=== PATIENT | male | born 1965 | race Caucasian/White ===

== ENCOUNTER 2019-08-04 08:19 | Day surgery (SDC) | payer BC ==
[~2019-08-04 08:19] MED LIST: CEFAZOLIN 2 Gram 2 GM/50 ML BAG IVPB ONE; CELECOXIB 100 MG CAPSULE PO ONE; FAMOTIDINE 20MG TABLET PO ONE; MECLIZINE 25 MG TABLET PO ONE; METOCLOPRAMIDE 10 MG TABLET PO ONE; VANCOMYCIN 1GM/200ML PREMIX 1 GM/200 ML PIGGYBACK IVPB ONE
[2019-08-04] MEDS ORDERED: MIDAZOLAM HCL 2MG/2ML VIAL IV ONE (08:20)
[2019-08-04] MEDS ORDERED: LIDOCAINE 2% MDV (20MG/ML) 20ML VIAL IV ONE (08:20)
[2019-08-04] MEDS ORDERED: ROPIVACAINE HCL (NAROPIN) /PF 5MG/ML 20ML VIAL IV ONE (08:20)
[2019-08-04] MEDS ORDERED: PROPOFOL 10 MG/ML VIAL IV ONE (08:20)
[2019-08-04] MEDS ORDERED: DEXAMETHASONE 4 MG/ML 1ML VIAL IVP ONE (08:20)
[2019-08-04 09:15] LABS: ABO GROUP A
[2019-08-04 09:16] LABS: ANTIBODY SCREEN NEGATIVE (NEGATIVE); RH TYPE POSITIVE
[2019-08-04] MEDS ORDERED: RINGERS SOLUTION,LACTATED 1,000 ML IV ONE ×2 (09:20→11:20)
[2019-08-04] MEDS ORDERED: TRANEXAMIC ACID 1,000 MG/10 ML ML IV ONE (12:00)
[2019-08-04] MEDS ORDERED: TRANEXAMIC ACID 1,000 MG/10 ML ML IU ONE (12:00)
[2019-08-04] MEDS ORDERED: BUPIVACAINE 0.5% W/EPI MPF 30 ML VIAL SQ ONE (12:00)
[2019-08-04] MEDS ORDERED: HYDROCODONE/APAP 10/325 TABLET PO PRN (12:24)
[2019-08-04] MEDS ORDERED: DIPHENHYDRAMINE HCL 25 MG CAPSULE PO PRN (12:24)
[2019-08-04] MEDS ORDERED: MAGNESIUM HYDROXIDE 30 ML UDC PO PRN (12:24)
[2019-08-04] MEDS ORDERED: BISACODYL 10 MG SUPP RC PRN (12:24)
[2019-08-04] MEDS ORDERED: ONDANSETRON HCL IV 4 MG/2 ML VIAL IVP PRN (12:24)
[2019-08-04] MEDS ORDERED: ACETAMINOPHEN W/ CODEINE 300MG/60MG TABLET PO PRN ×2 (12:24)
[2019-08-04] MEDS ORDERED: KETOROLAC 30 MG/ML VIAL IVP PRN (12:24)
[2019-08-04] MEDS ORDERED: TRAMADOL HCL 50 MG TABLET PO PRN (12:24)
[2019-08-04] MEDS ORDERED: NALOXONE 0.4 MG/1 ML VIAL IVP PRN (12:24)
[2019-08-04] MEDS ORDERED: HYDROMORPHONE HCL 2 MG/ML VIAL IM PRN (12:24)
[2019-08-04] MEDS ORDERED: ACETAMINOPHEN 325 MG TAB PO PRN (12:24)
[2019-08-04] MEDS ORDERED: ZOLPIDEM TARTRATE 5 MG TABLET PO PRN (12:24)
[2019-08-04] MEDS ORDERED: AL HYDROX/MAG HYDROX 30ML UD PO PRN (12:24)
[2019-08-04] MEDS ORDERED: PNEUM 23-VAL ADULT IM ONE (13:40)
[2019-08-04] MEDS: HYDROCODONE/APAP 10/325 TABLET PO PRN ×2 (14:47→17:45)
[2019-08-04] MEDS: POTASSIUM CHLORIDE/D5-0.9%NACL 20 MEQ/1,000 ML BAG IV SCH ×2 (15:38→21:33)
--- NOTE | 2019-08-04 15:47 | Rehab Evaluation ---
Patient Information - Patient Information Diagnosis: DJD L knee Ordered Treatment: PT Evaluate and Treat Status: Initial Evaluation Surgery: Yes (L TKA) Date of Surgery: 08/04/19 Past Medical/Surgical Hx: PAST MEDICAL/SURGICAL HISTORY Surgery to Affected Area? No Recent Surgery? Past Surgical History RIGHT KNEE SCOPE PMH - Respiratory Hx Respiratory Disorders No PMH - Cardiovascular Hx Cardiovascular Disorders Yes Hx Hypertension Yes: FAIR CONTROL ON MEDS Exercise Tolerance Good PMH - Neuro Hx Neurological Disorders No PMH - GI Hx Gastrointestinal Disorders No PMH - Hx Genitourinary Disorders No PMH - Endocrine Hx Endocrine Disorders No PMH - Musculoskeletal Hx Musculoskeletal Disorders Yes Hx Arthritis Yes: KNEES AND HANDS PMH - Psych Hx Psychiatric Problems No PMH - Hematology/Oncology Hx Hematology/Oncology No Disorders Premorbid Status: Detail (The patient was independent with all mobility prior to surgery.) Precautions: [place], Fall, Other (WBAT on L LE) - Time With Patient Total Time Spent With Patient (Min): 30 Treatment Procedures: Detail (Initial Evaluation, low complexity, gait training.) Subjective Information - Subjective Information Per Patient (The patient had complaints of L knee pain level 1-3.) Objective Data - Mental Status Patient Orientation: Oriented x3 - Visual Perception Appears within normal limits for therapeutic activities - ROM Not within normal limits (L knee AROM is limited s/p surgery. All other LE AROM is WNL.) - Strength/Tone Other (The patient's LE strength was not tested s/p sugery however strength is functional.) - Bed Mobility Independent (The patient is independent with supine to and from sit transfer.) - Transfers Independent (The patient was independent with sit to and from stand transfer.) - Balance Balance Sitting: Good Balance Standing: Good - Gait Detail (The patient ambulated with standard walker a distance of 110 feet x 1 WBAT on the L LE with supervision of 1 for safety only.) Therapy Assessment - Therapy Assessment Detail (The patient was independent with bed mobility, transfers and ambulation. Will see the patient for 1 to 2 visits for completion of inpt. PT goals.) Problem List - Problem List Physical Therapy Problem List: Detail (Decreased L knee AROM and L LE strength) Goals - Goals Physical Therapy Goals: 1) The patient will be independent with ambulation on stairs using proper technique with supervision for safety. 2) The patient will be indpendent with TKA HEP. Prognosis - Prognosis Good Plan - Plan Physical Therapy Plan: PT for 1-2 sessions for ambulation on stairs and instruction in HEP.
[2019-08-04] MEDS: CEFAZOLIN 2 Gram 2 GM/50 ML BAG IVPB SCH (20:32)
[2019-08-04] MEDS: DOCUSATE SODIUM 100 MG CAPSULE PO SCH (21:36)
[2019-08-05] MEDS: CEFAZOLIN 2 Gram 2 GM/50 ML BAG IVPB SCH ×2 (02:35→11:33)
[2019-08-05 06:34] LABS: HEMATOCRIT 38.7 % (42.0-52.0); HEMOGLOBIN 12.6 gm/dl (14.0-18.0)
[2019-08-05 06:49] LABS: BLOOD UREA NITROGEN 15 mg/dL (6-20); CREATININE 0.9 mg/dL (0.7-1.2); EST GLOMERULAR FILTRATION RATE > 60 mL/min; GLUCOSE,RANDOM 149 mg/dL (74-109)
--- NOTE | 2019-08-05 08:17 | Rehab Evaluation ---
Patient Information - Patient Information Diagnosis: DJD L knee Ordered Treatment: OT Evaluate and Treat Status: Initial Evaluation Surgery: Yes (L TKA) Date of Surgery: 08/04/19 Past Medical/Surgical Hx: PAST MEDICAL/SURGICAL HISTORY Surgery to Affected Area? No Recent Surgery? Past Surgical History RIGHT KNEE SCOPE PMH - Respiratory Hx Respiratory Disorders No PMH - Cardiovascular Hx Cardiovascular Disorders Yes Hx Hypertension Yes: FAIR CONTROL ON MEDS Exercise Tolerance Good PMH - Neuro Hx Neurological Disorders No PMH - GI Hx Gastrointestinal Disorders No PMH - Hx Genitourinary Disorders No PMH - Endocrine Hx Endocrine Disorders No PMH - Musculoskeletal Hx Musculoskeletal Disorders Yes Hx Arthritis Yes: KNEES AND HANDS PMH - Psych Hx Psychiatric Problems No PMH - Hematology/Oncology Hx Hematology/Oncology No Disorders Premorbid Status: Detail (The patient was independent with all mobility prior to surgery. His spouse is responsible for home mgmt, meal prep and laundry tasks. 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 He has a tub/shower combination with a hand held shower, no seat or grab bar and a standard height toilet, no grab bar. He has a standard walker.) Precautions: [place], Fall, Other (WBAT on L LE) - Time With Patient Total Time Spent With Patient (Min): 35 Treatment Procedures: Detail (OT eval low complexity) Subjective Information - Subjective Information Per Patient Objective Data - Pain Pain Present: Yes (09/07) - Mental Status Patient Orientation: Oriented x3 - Visual Perception Appears within normal limits for therapeutic activities - ROM Within normal limits (James UE AROM WNL) - Strength/Tone Within normal limits (James UE strength WNL) - Coordination Appears within normal limits for therapeutic activities - Bed Mobility Independent (Ind with supine to sit) - Transfers Independent (Ind with sit to stand from EOB) - Balance Balance Sitting: Good Balance Standing: Good - Sensation Intact - Gait Detail (Pt ambulating in room and hallway with CG assist.) - ADL's/IADL's Detail (Pt educated on modified LE dressing techniques and he was able to doff briefs and slipper socks and don ghada sock (with assist), boxer shorts, pants and slip on slippers Indly. Reviewed kitchen and shower safety and modifications, pt verbalized understanding.) Therapy Assessment - Therapy Assessment Detail (Pt is Ind with modified LE dressing techniques.) Problem List - Problem List Physical Therapy Problem List: Detail (Decreased L knee AROM and L LE strength) Occupational Therapy Problem List: Detail (No current IP OT problems identified.) Goals - Goals Physical Therapy Goals: 1) The patient will be independent with ambulation on stairs using proper technique with supervision for safety. 2) The patient will be indpendent with TKA HEP. Occupational Therapy Goals: No current IP OT goals identified. Prognosis - Prognosis Good Plan - Plan Physical Therapy Plan: PT for 1-2 sessions for ambulation on stairs and instruction in HEP. Occupational Therapy Plan: Pt is discharged from IP OT at this time. Thank you for this referral.
--- NOTE | 2019-08-05 09:10 | Operative Note ---
DATE OF SURGERY: 08/04/2019 PREOPERATIVE DIAGNOSIS: End-stage arthrosis of the left knee. POSTOPERATIVE DIAGNOSIS: End-stage arthrosis of the left knee. OPERATION: Cemented left total knee arthroplasty using [employer] II components with a size 6 Oxinium femur, a size 5 stemmed tibia baseplate, a 9 mm lipped highly crosslinked tibial insert, and a 35 mm all-plastic patella. STAFF SURGEON: Alex Elder MD ANESTHESIA: Spinal. PREPARATION: Chloraprep. INDIVIDUAL CONSIDERATIONS: None. PROCEDURE: The patient was taken to the operating room, placed supine on the operating room table. He had a successful induction of a spinal anesthetic. The left lower extremity was prepped and draped in the usual fashion. The patient had a midline approach to the knee. The limb was elevated and tourniquet was inflated to 250 mmHg. Sharp dissection carried down through skin and subcutaneous tissue. Small veins were coagulated with a Bovie. A medial arthrotomy was performed. The patella was everted and the knee was flexed. The patient had exposed bone in the lateral compartment with bone loss. Fat pad was resected, ACL was sacrificed, and provisional anterior meniscectomies were performed. The capsule was released from the medial proximal tibia. The initial femoral coil winder strap hole was then made freehand. The intramedullary femoral cutting jig was placed. It was cut in 7.0 degrees of valgus and adjusted for rotation and secured with pins for a 10 mm resection. The initial transverse cut was then made. The skin guide was placed in the anterior and posterior coil winder strap holes. It was found that a size 6 would be appropriate. The anterior and posterior cuts followed by chamfer cuts were made. Osteophytes removed, and a size 6 trial was placed and found to fit well. The tibia was brought forward, and the remainder of the meniscal remnants removed with a Bovie. The extraarticular tibial cutting jig was placed. It was cut in neutral with a 3-degree AP slope. It was set for a 9 mm resection keyed off the high lateral side and secured with pins. When cutting the tibia, care was taken to preserve the PCL insertion on the tibia. After removing large medial osteophytes, I was able to easily fit a size 5 baseplate trial. It was adjusted for rotation and secured with pins. With a 9 mm trial and femoral trial, there was excellent motion and stability. Ligamentous balance and rotation alignment were thought to be normal. No lateral release was required for patellofemoral tracking even at this point. Femoral coil winder strap holes were impacted and tri-flange tibial stamp cut and it was impacted, and these trial components were removed. The patient had a thick patella and roughly 9 mm of bone was removed freehand. It was found that I could fit a 35 patella, and the 3 coil winder strap holes were then drilled. After thorough irrigation with Betadine and saline, I put the tourniquet down briefly to get bleeders posteriorly and re-irrigated. Prior to cementing, I went ahead and removed blood from the bone with a CarboJet and cemented in a size 5 stemmed tibia baseplate followed by impaction of the 9 mm lipped tibial insert followed by cementing in the size 6 Oxinium femur followed by cementing in the size 35 mm patella. The implant surfaces were compressed, excess cement was removed. After the cement had set, there was excellent motion and stability. Ligamentous balance was normal. Rotation alignment and patellofemoral tracking were normal. Again final irrigation. Tourniquet was let down. Hemostasis was obtained with a Bovie. The capsule was then closed with a running #2 quill. Prior to closure, I did infiltrate the skin, subcu, and periosteum with 30 mL of 0.5% Marcaine with epinephrine. The subcu was closed with 0 quill, skin was closed with amilcar. Then 1 g of tranexamic acid was mixed with 30 mL of saline and injected into the knee through a sterile 18-gauge needle, and a sterile bulky compressive dressing was applied. The patient tolerated the procedure well. Needle and sponge counts were correct. Estimated blood loss was minimal, and he was taken back to recovery in good condition. BRIAN
[2019-08-05] MEDS: DOCUSATE SODIUM 100 MG CAPSULE PO SCH (09:22)
[2019-08-05] MEDS: POTASSIUM CHLORIDE/D5-0.9%NACL 20 MEQ/1,000 ML BAG IV SCH (09:27)
--- NOTE | 2019-08-05 09:33 | Physical Therapy Tx Note ---
Physical Therapy Tx Note - Treatment Note Tolerated: Good Total Time Spent With Patient: 20 Physical Therapy Tx Note: Detail (Patient was longsitting in bed upon ELECTROMED[employer] EQUIPMENT REPAIRER arrival. Patient states 3-4/10 pain in left knee. Patient transferred supine to sit independently. Patient donned shoes independently. Patient transferred sit to and from stand SBA x1. Patient ambulated 635 feet without assistive device CGA/SBA x1. Patient descended and ascended 3 steps with using stairwell railing CGA x1. Patient doffed shoes independently. Patient transferred sit to supine independently. Patient scooted up in bed independently. Patient performed the following exercises x10 reps each: ankle pumps, glut squeezes, quad sets, heel slides, SLR, hamstring sets, and SAQ. Patient tolerated treatment well. Patient displays good understanding of ambulation, stair climbing, bed mobility, and HEP. Patient was left reclined in bed with cryo on knee and nurses in room. Patient discharged from inpatient PT at this time as all goals are met.) Physical Therapy Problem List: Detail (Decreased L knee AROM and L LE strength) Physical Therapy Goals: 1) The patient will be independent with ambulation on stairs using proper technique with supervision for safety. Met. 2) The patient will be indpendent with TKA HEP. Met. Prognosis: Good Physical Therapy Plan: Patient discharged from inpatient PT at this time as all goals are met.
[2019-08-05] MEDS ORDERED: LISINOPRIL 20 MG TABLET PO SCH (10:00)
[2019-08-05] MEDS ORDERED: FERROUS SULFATE 325 MG TAB PO SCH (10:00)
[2019-08-05] MEDS ORDERED: SIMVASTATIN 20 MG TABLET PO SCH (10:00)
[2019-08-05] MEDS ORDERED: RIVAROXABAN 10 MG TABLET PO SCH (10:00)
== END 2019-08-05 14:00 | disposition home health service (06) ==
LOC: SUR 08:19 → MEDSURG 13:16 → SUR 08-05 14:00
PROVIDERS: ATTEND Orthopaedic Surgery
DX: M17.12 Unilateral primary osteoarthritis, left knee (principal); I10 Essential (primary) hypertension; E78.00 Pure hypercholesterolemia, unspecified; F17.210 Nicotine dependence, cigarettes, uncomplicated
CPT/HCPCS: 27447; 01402; 64447; 85018; 85014; 80048; 36416; 82948; 86900; 86901; 86850; 90732; C1776; J1885; J0690 ×2; J3490; J2795; J3370; 76942; J3480; J7120